=== PATIENT | female | born 1940 | race Asian ===

== ENCOUNTER → 2016-11-19 | Day surgery (SDC) | payer MEDICARE, OTHER ==
[~2016-11-19] MED LIST: ALBUTEROL17 GM INH; ANTIVERT PO; BACTRIM DS TABL1 TA1 PO; FLONASE ALLERG9.9 ML; LIPITOR; METOPROLOL TAR25 MG DOB
--- NOTE | ~2016-11-19 | OR ---
Unit #: [id number] #: [id number] Patient: CHARI ERICKSON [id number] [address] [place], [place] [address] [id number] MR#: [id number] NAME: CHARI ERICKSON ROOM: Date of Procedure: 11/19/2016 Admission Date: 11/19/2016 Surgeon: Neo Espinoza M.D. : 1940 Attending Physician: Neo Espinoza M.D. Primary Care Physician: Primary Care Physician No OPERATIVE REPORT PRIMARY CARE PHYSICIAN Kavitha García M.D. PREOPERATIVE DIAGNOSIS Colorectal cancer screening in an average-risk patient. PROCEDURES PERFORMED Colonoscopy and polypectomy. POSTOPERATIVE DIAGNOSES 1. The patient had 2 sessile polyps, one each in the proximal ascending colon and mid descending colon. The polyps were 3 mm and 7 mm each. Both the polyps were removed using snare polypectomy, retrieved, and sent for histology. 2. Rest of the examination up to cecum was normal. The quality of the prep was excellent. RECOMMENDATIONS 1. Repeat colonoscopy in 5 years. 2. Followup results of polyp histology. SEDATION USED MAC. DESCRIPTION OF PROCEDURE Following detailed explanation of the potential risks and complications of a colonoscopy, namely perforation, bleeding, and complications related to sedation, the patient was brought to GI lab and laid in the left lateral decubitus position. A digital rectal examination was performed, which was normal. Lubricated tip of the Olympus video colonoscope was inserted through the anus and advanced under direct vision. The scope was advanced and passed up to sigmoid into descending colon. No diverticula were seen in this area. The scope tip was then navigated all the way up to cecum with visualization of the ileocecal valve and the appendiceal orifice. Preparation was excellent with good visualization and photodocumentation was obtained. Successive segments of the colonic mucosa were examined upon withdrawal. The patient was noted to have 2 sessile polyps, the first one was in the proximal ascending colon and second one in the mid descending colon. These were 4 mm and 7 mm each respectively. Both the polyps were removed using snare polypectomy, retrieved, and sent for histology. No additional polyps were noted. The patient did not have any diverticulosis nor any hemorrhoids. The scope was then withdrawn and the Unit #: [id number] #: [id number] Patient: CHARI ERICKSON patient returned to the recovery area. She tolerated the procedure without any postprocedure complications. Dictated by... Paulino Izaguirre/abhi TD: 11/20/2016 02:44 JOB #: [id number] CC: Kavitha García M.D. OPERATIVE REPORT Page 1 of 1 X Neo Espinoza MD X PROCEDURE OPERATIVE NOTE
== END | disposition home or self-care (01) ==
LOC: COPS 07:01
DX: Z12.11 Encounter for screening for malignant neoplasm of colon (principal); D12.2 Benign neoplasm of ascending colon; D12.4 Benign neoplasm of descending colon; I10 Essential (primary) hypertension; Z79.899 Other long term (current) drug therapy
CPT/HCPCS: 88305